=== PATIENT | female | born 1990 | race Caucasian/White ===

== ENCOUNTER 2016-12-25 22:15 | Emergency (ER) | payer OTHER ==
[~2016-12-25] VITALS: Ht 172.7 cm; Wt 86.2 kg
[2016-12-25 22:19] VITALS: BP 134/95
[2016-12-25 22:52] LABS: AMPHETAMINE, URINE NEG. ng/ml (NEG <=1000); BARBITURATE, URINE NEG. ng/ml (NEG <=200); BENZODIAZEPINE, URINE NEG. ng/mL (NEG <=200); CANNABINOID, URINE NEG. ng/mL (NEG <=50); COCAINE, URINE NEG. ng/mL (NEG <=300); OPIATE, URINE NEG. ng/mL (NEG <=2000); PHENCYCLIDINE SCREEN,URINE NEG. ng/mL (NEG <=25)
--- NOTE | 2016-12-26 00:09 | NUR ---
Patient to OF.
--- NOTE | 2016-12-26 00:10 | NUR ---
26Y/F PT. PRESENTS TO ED WITH C/O CHEST PAIN X 1 DAY. PT. STATES PAIN WHEN LYING DOWN, NO N/V/D, NO MEDICAL HX. AAO X4, AMBULATORY WITH STEADY GAIT. RESPIRATIONS ROOM AIR, EVEN AND UNLABORED. SKIN WARM AND DRY. C/O CP 01/21, VSS, ER MADE AWARE OF PT. STATUS.
--- NOTE | 2016-12-26 00:11 | NUR ---
Dr. Posey evaluating patient.
--- NOTE | 2016-12-26 00:18 | NUR ---
Patient discharged with v/s stable. Written and verbal after care instructions given and explained. Patient alert, oriented and verbalized understanding of instructions. Ambulatory with steady gait. All questions addressed prior to discharge. ID band removed. Patient advised to follow up with PMD. Rx of ALBUTEROL 90 MCG/ACTUATION given. Patient educated on indication of medication including possible reaction and side effects. Opportunity to ask questions provided and answered. D/C BY DR. ENNIS.
[2016-12-26 03:07] VITALS: BP 134/95
== END 2016-12-26 00:18 | disposition home or self-care (01) ==
LOC: MED 22:15
DX: J98.01 Acute bronchospasm (principal); R03.0 Elevated blood-pressure reading, without diagnosis of hypertension
CPT/HCPCS: 80305; 93005; 99285

== ENCOUNTER 2017-07-09 05:55 | Day surgery (SDC) | payer OTHER ==
[~2017-07-09] VITALS: Ht 172.7 cm; Wt 83.9 kg
[2017-07-09] MEDS ORDERED: IBUP-2213 PO (07:15)
[2017-07-09] MEDS ORDERED: ACET-2858 PO (07:15)
[2017-07-09] MEDS ORDERED: BUPIVACAINE-MPF 0.5% 30 ML VIAL INJ ONE (07:34)
[2017-07-09] MEDS ORDERED: MORPHINE SULFATE 4 MG/ML SYR IM/IVP PRN (07:50)
[2017-07-09] MEDS ORDERED: ONDANSETRON 4 MG/2 ML VIAL IVP PRN ×2 (07:50→08:35)
[2017-07-09] MEDS ORDERED: IBUPROFEN 800 MG TAB PO PRN (07:50)
[2017-07-09] MEDS ORDERED: ACETAMINOPHEN/CODEINE 300/30MG 1 TAB PO PRN (07:50)
[2017-07-09] MEDS ORDERED: fentaNYL 0.05 MG/ML VIAL ONE (08:02)
[2017-07-09] MEDS ORDERED: ceFAZolin 1,000 MG VIAL ONE (08:10)
[2017-07-09] MEDS ORDERED: METHYLENE BLUE 1% 10 MG/ML AMP ONE (08:20)
[2017-07-09] MEDS ORDERED: HYDROmorphone PFS 2 MG/ML SYR ONE (08:45)
[2017-07-09] MEDS: HYDROmorphone 1 MG/ML AMP IVP PRN ×2 (08:52→09:02)
[2017-07-09] MEDS ORDERED: HYDROmorphone PFS 2 MG/ML SYR IVP PRN (09:32)
== END 2017-07-09 13:01 | disposition home or self-care (01) ==
LOC: MDS 05:55 → MMU 05:57 → MDS 13:01
PROVIDERS: ATTEND Obstetrics & Gynecology
DX: N83.201 Unspecified ovarian cyst, right side (principal); N83.202 Unspecified ovarian cyst, left side; N73.6 Female pelvic peritoneal adhesions (postinfective); N80.9 Endometriosis, unspecified; N97.1 Female infertility of tubal origin
CPT/HCPCS: 58662; 82374; J0690; J1170; J3010; J3490; Q9968

== ENCOUNTER 2018-11-21 16:29 | Emergency (ER) | payer SELFPAY ==
[~2018-11-21] VITALS: Ht 172.7 cm; Wt 83.0 kg
[~2018-11-21 16:29] MED LIST: HYDR-5092 PO; IBUP-2213 PO
[2018-11-21 16:46] VITALS: BP 148/83
--- NOTE | 2018-11-21 16:48 | NUR ---
TO LOBBY A/W BED, AMBULATORY
--- NOTE | 2018-11-21 17:18 | NUR ---
returned from radiology via
--- NOTE | 2018-11-21 17:22 | NUR ---
c/o mechanical fall yesterday--swelling pain tender to apply full weight
[2018-11-21 18:46] VITALS: BP 131/78
--- NOTE | 2018-11-21 18:46 | NUR ---
Patient discharged with v/s stable. Written and verbal after care instructions given and explained. Patient alert, oriented and verbalized understanding of instructions. Ambulatory with steady gait. All questions addressed prior to discharge. ID band removed. Patient advised to follow up with PMD. Rx of NAPROSYN/TRAMADOL given. Patient educated on indication of medication including possible reaction and side effects. Opportunity to ask questions provided and answered.
== END 2018-11-21 18:46 | disposition home or self-care (01) ==
LOC: MED 16:29
DX: S86.911A Strain of unspecified muscle(s) and tendon(s) at lower leg level, right leg, initial encounter (principal); X50.0XXA Overexertion from strenuous movement or load, initial encounter; Y93.01 Activity, walking, marching and hiking; Y92.89 Other specified places as the place of occurrence of the external cause; Y99.8 Other external cause status
CPT/HCPCS: 73562; 99283

== ENCOUNTER 2019-11-23 13:15 | Emergency (ER) | payer SELFPAY ==
[~2019-11-23] VITALS: Ht 172.7 cm; Wt 83.9 kg
[2019-11-23 13:20] VITALS: BP 126/85
--- NOTE | 2019-11-23 13:26 | NUR ---
PT AMB TO BED 6.
--- NOTE | 2019-11-23 13:43 | NUR ---
SALBADOR PEÑALOZA AT BEDSIDE
[2019-11-23] MEDS ORDERED: KETOROLAC 30 MG/ML VIAL IM ONE (13:50)
--- NOTE | 2019-11-23 13:50 | NUR ---
C/O BILATERAL EAR PAIN 01/21 X 2 WEEKS. STATES SHE HAS BEEN TAKING IBUPROFEN AND EAR DROPS WITH NO RELIEF. DENIES DIZZINESS OR LOSS OF HEARING. PT ALERT AND AWAKE, VS STABLE. AMBULATORY WITH STEADY GAIT. MED HX: DENIES
--- NOTE | 2019-11-23 13:55 | NUR ---
TORADOL IM ADMINISTERED
--- NOTE | 2019-11-23 14:32 | NUR ---
NADR, PAIN 08/21
[2019-11-23 14:35] VITALS: BP 134/76
--- NOTE | 2019-11-23 14:35 | NUR ---
Patient discharged with v/s stable. Written and verbal after care instructions given and explained. Patient alert, oriented and verbalized understanding of instructions. Ambulatory with steady gait. All questions addressed prior to discharge. ID band removed. Patient advised to follow up with PMD. Rx of NAPROSYN PRN PAIN AND CORTISPORIN OTIC SOLUTION given. Patient educated on indication of medication including possible reaction and side effects. Opportunity to ask questions provided and answered.
== END 2019-11-23 14:35 | disposition home or self-care (01) ==
LOC: MED 13:15
DX: H60.8X1 Other otitis externa, right ear (principal); Z79.899 Other long term (current) drug therapy
CPT/HCPCS: 96372; 99283; J1885

== ENCOUNTER 2019-12-06 16:39 | Emergency (ER) | payer SELFPAY ==
[~2019-12-06] VITALS: Ht 172.7 cm; Wt 85.7 kg
[2019-12-06 16:54] VITALS: BP 132/96
--- NOTE | 2019-12-06 16:57 | NUR ---
PT AMBULATED TO LOBBY
--- NOTE | 2019-12-06 18:09 | NUR ---
PT C/O NASAL CONGESTION AND SORE THROAT S/P INTRODUCING NEW CAT INTO HOME. PT STATES SHORT HAIR CAT. STATES SHE HAS A BULLDOG AT HOME AND HAS NEVER HAD ANY ALLERGIES. PT DENIES COUGH/SOB. AIRWAY INTACT. AFEBRILE. PT DENIES TAKING ANY MEDICATION FOR S/S, STATES SHE HAS BEEN DRINKING TEAS TO RELIEVE SORE THROAT. PT ALERT AND AWAKE. VS STABLE. PT AMBULATORY WITH STEADY GAIT.
--- NOTE | 2019-12-06 18:13 | NUR ---
SALBADOR PEÑALOZA AT BEDSIDE
[2019-12-06 18:28] VITALS: BP 129/88
--- NOTE | 2019-12-06 18:29 | NUR ---
Patient discharged with v/s stable. Written and verbal after care instructions given and explained. Patient alert, oriented and verbalized understanding of instructions. Ambulatory with steady gait. All questions addressed prior to discharge. ID band removed. Patient advised to follow up with PMD. Rx of zyrtec 5mg, fluticason 50mcg, and ibuprofen 600mg given. Patient educated on indication of medication including possible reaction and side effects. Opportunity to ask questions provided and answered.
== END 2019-12-06 18:29 | disposition home or self-care (01) ==
LOC: MED 16:39
DX: J30.9 Allergic rhinitis, unspecified (principal); Z79.899 Other long term (current) drug therapy
CPT/HCPCS: 99283

== ENCOUNTER 2020-03-19 16:48 | Emergency (ER) | payer MEDICAID ==
[~2020-03-19] VITALS: Ht 172.7 cm; Wt 82.7 kg
[2020-03-19 16:52] VITALS: BP 110/76
--- NOTE | 2020-03-19 17:10 | NUR ---
C/O INTERMITENT GENERALIZED ABDOMINAL PAIN X TODAY. LMP 03/05/20. 6 WEEKS. L1 AND ECTOPIC SURGERY X 2 TIMES. DENIES N/V/D. PT AOX4 , AFIBRILE , AMBULATORY WITH STEADY GAIT , PINK PALPEBRAL CONJUNCTIVA , ANICTERIC SCLERA, SCE , ROUND SOFT ABDOMEN. MED HX: PITUITARY GLAND REMOVAL IN 2006
--- NOTE | 2020-03-19 17:19 | NUR ---
DR PRATT AT BEDSIDE EVALUATING PT.
--- NOTE | 2020-03-19 17:32 | NUR ---
US AND LABS AT BEDSIDE.
[2020-03-19] MEDS: ACETAMINOPHEN 325 MG TAB PO ONE (17:34)
[2020-03-19 17:52] LABS: BASOPHILS % (AUTO) 0.5 % (0.0-2.0); EOSINOPHILS # (AUTO) 0.1 K/uL (0-0.4); EOSINOPHILS % (AUTO) 0.9 % (0.0-4.0); HEMATOCRIT 35.5 % (36-48); HEMOGLOBIN 12.1 g/dL (12.0-16.0); LYMPHOCYTES # (AUTO) 2.2 K/uL (2.5-16.5); LYMPHOCYTES % (AUTO) 23.7 % (20.5-51.1); MEAN CORPUSCULAR HEMOGLOBIN 31 pg (27-31); MEAN CORPUSCULAR HGB CONC 34 g/dL (33-37); MEAN CORPUSCULAR VOLUME 91.5 fL (80-94); MONOCYTES # (AUTO) 0.5 K/uL (0.8-1.0); MONOCYTES % (AUTO) 5.6 % (1.7-9.3); NEUTROPHILS # (AUTO) 6.5 K/uL (1.8-7.7); NEUTROPHILS % (AUTO) 69.3 % (42.2-75.2); PLATELET COUNT (AUTO) 290 K/uL (140-450); RED BLOOD CELL COUNT(AUTO) 3.88 MIL/uL (4.20-5.40); RED CELL DISTRIBUTION WIDTH 12.6 % (11.6-13.7); WHITE BLOOD COUNT (AUTO) 9.4 K/uL (4.8-10.8)
--- NOTE | 2020-03-19 19:10 | NUR ---
dr armijo at bedside reevaluating pt.
[2020-03-19 19:18] VITALS: BP 97/67
--- NOTE | 2020-03-19 19:19 | NUR ---
Patient discharged with v/s stable. Written and verbal after care instructions given and explained regarding threatened miscarriage. Patient alert, oriented and verbalized understanding of instructions. Ambulatory with steady gait. All questions addressed prior to discharge. ID band removed. Patient advised to follow up with PMD. Rx of acetaminophen given. Patient educated on indication of medication including possible reaction and side effects. Opportunity to ask questions provided and answered.Excuse from work give.
== END 2020-03-19 19:18 | disposition home or self-care (01) ==
LOC: MED 16:48
DX: O20.0 Threatened abortion (principal); O00.91 Unspecified ectopic pregnancy with intrauterine pregnancy; Z3A.01 Less than 8 weeks gestation of pregnancy; Z79.899 Other long term (current) drug therapy
CPT/HCPCS: 36415; 76817; 81002; 81025; 84702; 85025; 86900; 86901; 99284; Q0092

== ENCOUNTER 2020-08-21 11:48 | Observation (INO) | payer MEDICAID, SELFPAY ==
[~2020-08-21] VITALS: Ht 172.7 cm; Wt 81.2 kg
[2020-08-21] MEDS ORDERED: PRETAB PO (12:50)
[2020-08-21] MEDS ORDERED: FERR-212 PO (12:51)
[2020-08-21] MEDS ORDERED: CALC500C17 PO (12:53)
[2020-08-21 12:57] VITALS: BP 107/66
[2020-08-21] MEDS ORDERED: MORPHINE SULFATE 4 MG/ML SYR IM PRN (13:55)
== END 2020-08-21 15:25 | disposition home or self-care (01) ==
LOC: MLD 11:48
PROVIDERS: ADMIT Obstetrics & Gynecology; ATTEND Obstetrics & Gynecology
DX: O26.893 Other specified pregnancy related conditions, third trimester (principal); R10.12 Left upper quadrant pain; Z3A.28 28 weeks gestation of pregnancy
CPT/HCPCS: 81000; G0378; J2270; 96372

== ENCOUNTER 2021-09-05 15:20 | Emergency (ER) | payer MEDICAID, SELFPAY ==
[~2021-09-05] VITALS: Ht 172.7 cm; Wt 83.0 kg
[~2021-09-05 15:20] MED LIST changes: +CALC500C17 PO; +FERR-212 PO; -HYDR-5092 PO; -IBUP-2213 PO; +PRETAB PO
[2021-09-05 15:21] VITALS: BP 129/86
--- NOTE | 2021-09-05 15:26 | NUR ---
PT AMBULATED TO ER BED 2 WITH A STEADY GAIT.
--- NOTE | 2021-09-05 15:36 | NUR ---
DR. TORRES AT PT BEDSIDE FOR FURTHER EVALUATION.
[2021-09-05] MEDS ORDERED: IBUP-2213 PO (15:41)
[2021-09-05] MEDS ORDERED: HYDR25CA1 PO (15:41)
[2021-09-05] MEDS ORDERED: hydrOXYzine PAMOATE 25 MG CAP PO STA (15:52)
[2021-09-05] MEDS ORDERED: KETOROLAC 30 MG/ML VIAL IM ONE (15:55)
--- NOTE | 2021-09-05 15:58 | NUR ---
RAD AT PT BEDSIDE
--- NOTE | 2021-09-05 16:18 | NUR ---
lab at pt bedside
[2021-09-05 16:27] LABS: BASOPHILS # (AUTO) 0.1 K/uL (0.00-0.22); BASOPHILS % (AUTO) 0.7 % (0.0-2.0); EOSINOPHILS # (AUTO) 0.2 K/uL (0-0.4); EOSINOPHILS % (AUTO) 3.6 % (0.0-4.0); HEMATOCRIT 38.1 % (36-48); HEMOGLOBIN 13.1 g/dL (12.0-16.0); LYMPHOCYTES # (AUTO) 2.3 K/uL (2.5-16.5); LYMPHOCYTES % (AUTO) 34.9 % (20.5-51.1); MEAN CORPUSCULAR HEMOGLOBIN 32 pg (27-31); MEAN CORPUSCULAR HGB CONC 35 g/dL (33-37); MEAN CORPUSCULAR VOLUME 91.4 fL (80-94); MONOCYTES # (AUTO) 0.4 K/uL (0.8-1.0); MONOCYTES % (AUTO) 5.5 % (1.7-9.3); NEUTROPHILS # (AUTO) 3.7 K/uL (1.8-7.7); NEUTROPHILS % (AUTO) 55.3 % (42.2-75.2); PLATELET COUNT (AUTO) 305 K/uL (140-450); RED BLOOD CELL COUNT(AUTO) 4.16 MIL/uL (4.20-5.40); RED CELL DISTRIBUTION WIDTH 12.5 % (11.6-13.7); WHITE BLOOD COUNT (AUTO) 6.7 K/uL (4.8-10.8)
[2021-09-05 16:46] LABS: ALBUMIN 3.8 g/dL (3.4-5.0); ANION GAP 14.2 (8-16); ASPARTATE AMINOTRANSFERASE 13 U/L (15-37); CARBON DIOXIDE 27.5 mmol/L (21-32); CHLORIDE 102 mmol/L (98-107); CREATININE 0.6 mg/dL (0.6-1.3); GFR ARICAN-AMERICAN 148 mL/min (>90); GLUCOSE 106 mg/dL (74-106); POTASSIUM 3.7 mmol/L (3.5-5.1); SODIUM SERUM 140 mmol/L (136-145); TOTAL BILIRUBIN 0.3 mg/dL (0.0-1.0); UREA NITROGEN, BLOOD 7 mg/dL (7-18)
[2021-09-05] MEDS ORDERED: IBUPROFEN 600 MG TAB PO ONE (16:55)
--- NOTE | 2021-09-05 17:17 | NUR ---
Patient discharged with v/s stable. Written and verbal after care instructions given and explained. Patient alert, oriented and verbalized understanding of instructions. Ambulatory with steady gait. All questions addressed prior to discharge. ID band removed. Patient advised to follow up with PMD. Rx of VISTARIL AND IBUPROFEN given. Patient educated on indication of medication including possible reaction and side effects. Opportunity to ask questions provided and answered.
[2021-09-05 17:18] VITALS: BP 136/79
== END 2021-09-05 17:18 | disposition home or self-care (01) ==
LOC: MED 15:20
DX: R07.9 Chest pain, unspecified (principal); Z63.4 Disappearance and death of family member; Z79.899 Other long term (current) drug therapy
CPT/HCPCS: 36415; 71045; 80053; 81025; 84484; 85025; 93005; 99285; Q0177; J1885

== ENCOUNTER 2022-04-26 14:45 | Emergency (ER) | payer MEDICAID ==
[~2022-04-26] VITALS: Ht 172.7 cm; Wt 81.2 kg
[~2022-04-26 14:45] MED LIST changes: +HYDR25CA1 PO; +IBUP-2213 PO
[2022-04-26 15:06] VITALS: BP 126/88
--- NOTE | 2022-04-26 15:12 | NUR ---
COVID , FLU SWABS DONE.
[2022-04-26] MEDS ORDERED: ALBU0.0912 IH (16:06)
[2022-04-26] MEDS ORDERED: BENZ200C4 PO (16:06)
[2022-04-26] MEDS ORDERED: LID5T TP (16:06)
--- NOTE | 2022-04-26 16:15 | NUR ---
32 y/o female bib, c/o nonproductive cough, body aches, hilliard, rhinorrhea, nasal congestion for 3 days. states her son recently tested positive for COVID-19. She is not vaccinated against COVID. States she feels slightly short of breath when she coughs and has anterior chest wall pain when she coughs. skin is pink/warm/dry. a&o x4 with even and steady gait. ermd made aware of pt. pmh: denies nka
--- NOTE | 2022-04-26 16:26 | NUR ---
Patient discharged with v/s stable. Written and verbal after care instructions given. Patient alert, oriented and verbalized understanding of instructions. Ambulatory with steady gait. All questions addressed prior to discharge. ID band removed. Patient advised to follow up with PMD. Rx of BENZONATATE, LIDODERM AND PROVENTIL given. Opportunity to ask questions provided and answered. WORK NOTE HANDED TO PATIENT.
--- NOTE | 2022-04-26 16:27 | NUR ---
The patient's care was reviewed and supervised by Diane Brown, RN, RN.
== END 2022-04-26 16:26 | disposition home or self-care (01) ==
LOC: MED 14:45
DX: U07.1 COVID-19 (principal); J06.9 Acute upper respiratory infection, unspecified; Z79.899 Other long term (current) drug therapy
CPT/HCPCS: 99283

== ENCOUNTER 2022-05-24 12:56 | Emergency (ER) | payer MEDICAID ==
[~2022-05-24] VITALS: Ht 172.7 cm; Wt 81.7 kg
[~2022-05-24 12:56] MED LIST changes: +ALBU0.0912 IH; +BENZ200C4 PO; +LID5T TP
[2022-05-24 13:03] VITALS: BP 136/99
[2022-05-24 13:22] LABS: APPEARANCE,URINE SL CLOUDY (CLEAR); BILIRUBIN,URINE NEGATIVE (NEGATIVE); BLOOD, URINE 3+ (NEGATIVE); COLOR,URINE AMBER (YELLOW); LEUKOCYTE ESTERASE ,URINE NEGATIVE (NEGATIVE); NITRITE, URINE NEGATIVE (NEGATIVE); UGLUCOSE NEGATIVE (NEGATIVE)
[2022-05-24 13:36] LABS: OTHER CASTS, URINE None Seen /LPF (None Seen); RBC,URINE 11-20 (MOD) /HPF (0-5); WBC,URINE 0-5 /HPF (0-5)
[2022-05-24] MEDS ORDERED: NACL 0.9% 1,000 ML IV ONE (15:05)
[2022-05-24 15:08] LABS: BASOPHILS # (AUTO) 0.1 K/uL (0.00-0.22); BASOPHILS % (AUTO) 0.6 % (0.0-2.0); EOSINOPHILS # (AUTO) 0.2 K/uL (0-0.4); EOSINOPHILS % (AUTO) 1.9 % (0.0-4.0); HEMATOCRIT 42.3 % (36-48); HEMOGLOBIN 14.4 g/dL (12.0-16.0); LYMPHOCYTES # (AUTO) 2.6 K/uL (2.5-16.5); LYMPHOCYTES % (AUTO) 29.9 % (20.5-51.1); MEAN CORPUSCULAR HEMOGLOBIN 32 pg (27-31); MEAN CORPUSCULAR HGB CONC 34 g/dL (33-37); MEAN CORPUSCULAR VOLUME 92.1 fL (80-94); MONOCYTES # (AUTO) 0.6 K/uL (0.8-1.0); MONOCYTES % (AUTO) 6.9 % (1.7-9.3); NEUTROPHILS # (AUTO) 5.2 K/uL (1.8-7.7); NEUTROPHILS % (AUTO) 60.7 % (42.2-75.2); PLATELET COUNT (AUTO) 344 K/uL (140-450); RED BLOOD CELL COUNT(AUTO) 4.59 MIL/uL (4.20-5.40); RED CELL DISTRIBUTION WIDTH 13.1 % (11.6-13.7); WHITE BLOOD COUNT (AUTO) 8.6 K/uL (4.8-10.8)
[2022-05-24 15:43] LABS: ALBUMIN 4.1 g/dL (3.4-5.0); ANION GAP 13.9 (8-16); CARBON DIOXIDE 29.2 mmol/L (21-32); CREATININE 0.6 mg/dL (0.6-1.3); POTASSIUM 4.1 mmol/L (3.5-5.1); TOTAL BILIRUBIN 0.6 mg/dL (0.0-1.0)
[2022-05-24] MEDS ORDERED: KETOROLAC 30 MG/ML VIAL IVP ONE (15:50)
--- NOTE | 2022-05-24 15:57 | NUR ---
pt in room 11, a/o times 4, medicated for left flank pain, no n/v, o2 sat 98% ra, sr up times 2
[2022-05-24] MEDS ORDERED: ONDANSETRON 4 MG/2 ML VIAL IVP ONE (17:05)
[2022-05-24] MEDS ORDERED: MORPHINE SULFATE 4 MG/ML SYR IVP ONE (17:05)
[2022-05-24] MEDS ORDERED: cephALEXin 500 MG CAP PO ONE (17:05)
[2022-05-24] MEDS ORDERED: TAMSULOSIN 0.4 MG CAP PO SCH (17:05)
[2022-05-24] MEDS ORDERED: IBUP-2213 PO (17:07)
[2022-05-24] MEDS ORDERED: CEPH-588 PO (17:07)
[2022-05-24] MEDS ORDERED: ACET-6951 PO (17:07)
[2022-05-24] MEDS ORDERED: ONDA-188 SL (17:07)
[2022-05-24] MEDS ORDERED: TAMS0.4C96 PO (17:07)
--- NOTE | 2022-05-24 17:23 | NUR ---
medicated per dr order, o2 sat 99% ra, sr up times 2
[2022-05-24 17:45] VITALS: BP 135/72
--- NOTE | 2022-05-24 18:34 | NUR ---
Patient discharged with v/s stable. Written and verbal after care instructions given and explained. Patient alert, oriented and verbalized understanding of instructions. Ambulatory with steady gait. All questions addressed prior to discharge. ID band removed. Patient advised to follow up with PMD. Rx of KEFLEX, TYLENOL, IBUPROFEN, ZOFRAN, FLOMAX (SENT) given. Patient educated on indication of medication including possible reaction and side effects. Opportunity to ask questions provided and answered.
== END 2022-05-24 17:45 | disposition home or self-care (01) ==
LOC: MED 12:56
DX: N20.0 Calculus of kidney (principal); N13.30 Unspecified hydronephrosis; I10 Essential (primary) hypertension; Z79.899 Other long term (current) drug therapy
CPT/HCPCS: 36415; 74176; 80053; 81001; 81025; 83690; 85025; 87086; 96361; 96374; 96375; 99284; J1885; J2270; J2405; J7030

== ENCOUNTER 2022-06-18 11:48 | Emergency (ER) | payer MEDICAID ==
[~2022-06-18] VITALS: Ht 172.7 cm; Wt 80.7 kg
[~2022-06-18 11:48] MED LIST changes: +ACET-6951 PO; +CEPH-588 PO; +ONDA-188 SL; +TAMS0.4C96 PO
[2022-06-18 11:59] VITALS: BP 132/83
[2022-06-18] MEDS ORDERED: ONDANSETRON 4 MG/2 ML VIAL IVP ONE (12:30)
[2022-06-18] MEDS ORDERED: MORPHINE SULFATE 4 MG/ML SYR IVP ONE (12:30)
[2022-06-18] MEDS ORDERED: KETOROLAC 30 MG/ML VIAL IVP ONE (12:45)
[2022-06-18 12:57] LABS: APPEARANCE,URINE SL CLOUDY (CLEAR); BILIRUBIN,URINE NEGATIVE (NEGATIVE); BLOOD, URINE 3+ (NEGATIVE); COLOR,URINE RED (YELLOW); LEUKOCYTE ESTERASE ,URINE TRACE (NEGATIVE); NITRITE, URINE NEGATIVE (NEGATIVE); UGLUCOSE NEGATIVE (NEGATIVE)
[2022-06-18 13:02] LABS: BASOPHILS % (AUTO) 0.4 % (0.0-2.0); EOSINOPHILS # (AUTO) 0.1 K/uL (0-0.4); HEMATOCRIT 39.8 % (36-48); HEMOGLOBIN 13.6 g/dL (12.0-16.0); LYMPHOCYTES # (AUTO) 1.6 K/uL (2.5-16.5); LYMPHOCYTES % (AUTO) 14.8 % (20.5-51.1); MEAN CORPUSCULAR HEMOGLOBIN 31 pg (27-31); MEAN CORPUSCULAR HGB CONC 34 g/dL (33-37); MEAN CORPUSCULAR VOLUME 91.7 fL (80-94); MONOCYTES # (AUTO) 0.5 K/uL (0.8-1.0); NEUTROPHILS # (AUTO) 8.4 K/uL (1.8-7.7); NEUTROPHILS % (AUTO) 78.8 % (42.2-75.2); PLATELET COUNT (AUTO) 299 K/uL (140-450); RED BLOOD CELL COUNT(AUTO) 4.34 MIL/uL (4.20-5.40); RED CELL DISTRIBUTION WIDTH 13.1 % (11.6-13.7); WHITE BLOOD COUNT (AUTO) 10.7 K/uL (4.8-10.8)
--- NOTE | 2022-06-18 13:11 | NUR ---
PT WENT TO CT
[2022-06-18 13:13] LABS: RBC,URINE 20-50 /HPF (0-5)
[2022-06-18 13:14] LABS: OTHER CASTS, URINE None Seen /LPF (None Seen)
[2022-06-18 13:16] LABS: ALBUMIN 4.4 g/dL (3.4-5.0); ANION GAP 12.7 (8-16); CREATININE 0.6 mg/dL (0.6-1.3); POTASSIUM 3.7 mmol/L (3.5-5.1); TOTAL BILIRUBIN 0.8 mg/dL (0.0-1.0)
[2022-06-18] MEDS ORDERED: TAMS0.4C96 PO (14:52)
[2022-06-18] MEDS ORDERED: IBUP-2218 PO (14:52)
[2022-06-18] MEDS ORDERED: CEPH-588 PO (14:52)
--- NOTE | 2022-06-18 15:27 | NUR ---
IV removed, catheter intact and site benign. Applied folded 4x4 gauze and tape to stop bleeding.
[2022-06-18 15:31] VITALS: BP 128/88
--- NOTE | 2022-06-18 15:31 | NUR ---
Patient discharged with v/s stable. Written and verbal after care instructions ABOUT KIDNEY STONES AND OVARIAN CYSTS given and explained. Patient alert, oriented and verbalized understanding of instructions. Ambulatory with steady gait. All questions addressed prior to discharge. ID band removed. Patient advised to follow up with PMD. Rx of KEFLEX, MOTRIN AND FLOMAX given. Patient educated on indication of medication including possible reaction and side effects. Opportunity to ask questions provided and answered.
== END 2022-06-18 15:31 | disposition home or self-care (01) ==
LOC: MED 11:48
DX: N13.4 Hydroureter (principal); N83.201 Unspecified ovarian cyst, right side; N39.0 Urinary tract infection, site not specified
CPT/HCPCS: 36415; 74176; 76856; 80053; 81001; 81025; 83690; 84702; 85025; 87086; 93976; 96374; 96375; 99284; J1885; J2405; Q0092

== ENCOUNTER 2022-10-16 11:16 | Emergency (ER) | payer MEDICAID ==
[~2022-10-16] VITALS: Ht 170.2 cm; Wt 72.6 kg
[~2022-10-16 11:16] MED LIST changes: +IBUP-2218 PO
[2022-10-16 11:27] VITALS: BP 129/80
--- NOTE | 2022-10-16 11:29 | NUR ---
AMB. TO BED 7 W NO DIFFICULTIES
[2022-10-16] MEDS ORDERED: HYDROcodone/APAP 5/325 MG 1 TAB TAB PO ONE (11:40)
--- NOTE | 2022-10-16 11:42 | NUR ---
patient comes in c/o hilliard since wednesday and chest pain that started yesterday 01/21. pt has o past medical hx and takes no medications. symtoms can on unexpected denies dizziness, vision changes, ear pain. she endorses nausea and has taken tylenol for the h/a with no relief.
[2022-10-16 11:52] LABS: BASOPHILS % (AUTO) 0.5 % (0.0-2.0); EOSINOPHILS # (AUTO) 0.2 K/uL (0-0.4); HEMATOCRIT 38.3 % (36-48); HEMOGLOBIN 13.1 g/dL (12.0-16.0); LYMPHOCYTES # (AUTO) 1.8 K/uL (2.5-16.5); LYMPHOCYTES % (AUTO) 27.5 % (20.5-51.1); MEAN CORPUSCULAR HEMOGLOBIN 32 pg (27-31); MEAN CORPUSCULAR HGB CONC 34 g/dL (33-37); MONOCYTES # (AUTO) 0.3 K/uL (0.8-1.0); MONOCYTES % (AUTO) 4.4 % (1.7-9.3); NEUTROPHILS # (AUTO) 4.3 K/uL (1.8-7.7); NEUTROPHILS % (AUTO) 64.6 % (42.2-75.2); PLATELET COUNT (AUTO) 309 K/uL (140-450); RED BLOOD CELL COUNT(AUTO) 4.11 MIL/uL (4.20-5.40); RED CELL DISTRIBUTION WIDTH 12.3 % (11.6-13.7); WHITE BLOOD COUNT (AUTO) 6.7 K/uL (4.8-10.8)
[2022-10-16 12:08] LABS: ANION GAP 9.2 (8-16); CARBON DIOXIDE 29.4 mmol/L (21-32); CREATININE 0.7 mg/dL (0.6-1.3); POTASSIUM 3.6 mmol/L (3.5-5.1)
--- NOTE | 2022-10-16 12:56 | NUR ---
Patient discharged with v/s stable. Written and verbal after care instructions given and explained. Patient verbalized understanding. Ambulatory with steady gait. All questions addressed prior to discharge. Advised to follow up with PMD.
== END 2022-10-16 12:56 | disposition home or self-care (01) ==
LOC: MED 11:16
DX: R07.9 Chest pain, unspecified (principal); R51.9 Headache, unspecified; Z79.899 Other long term (current) drug therapy; Z79.1 Long term (current) use of non-steroidal anti-inflammatories (NSAID); Z79.2 Long term (current) use of antibiotics
CPT/HCPCS: 36415; 71045; 80048; 84484; 84703; 85025; 93005; 99285; Q0092

== ENCOUNTER 2023-05-17 08:17 | Emergency (ER) | payer MEDICAID ==
[~2023-05-17] VITALS: Ht 167.6 cm; Wt 72.6 kg
[2023-05-17 08:52] VITALS: BP 115/76; PULSE 83; RESP 18; TEMP 98; O2SAT 98
[2023-05-17 09:00] VITALS: O2SAT 98
[2023-05-17 10:15] LABS: ANION GAP 11.3 (8-16); CALCIUM 8.4 mg/dL (8.5-10.1); CARBON DIOXIDE 27.5 mmol/L (21-32); CREATININE 0.7 mg/dL (0.6-1.3); POTASSIUM 3.8 mmol/L (3.5-5.1)
[2023-05-17 10:16] LABS: BASOPHILS % (AUTO) 0.6 % (0.0-2.0); EOSINOPHILS # (AUTO) 0.2 K/uL (0-0.4); EOSINOPHILS % (AUTO) 3.6 % (0.0-4.0); HEMATOCRIT 39.1 % (36-48); HEMOGLOBIN 13.5 g/dL (12.0-16.0); LYMPHOCYTES % (AUTO) 30.5 % (20.5-51.1); MEAN CORPUSCULAR HEMOGLOBIN 32 pg (27-31); MEAN CORPUSCULAR HGB CONC 34 g/dL (33-37); MONOCYTES # (AUTO) 0.3 K/uL (0.8-1.0); MONOCYTES % (AUTO) 4.9 % (1.7-9.3); NEUTROPHILS % (AUTO) 60.4 % (42.2-75.2); PLATELET COUNT (AUTO) 322 K/uL (140-450); RED BLOOD CELL COUNT(AUTO) 4.25 MIL/uL (4.20-5.40); RED CELL DISTRIBUTION WIDTH 12.7 % (11.6-13.7); WHITE BLOOD COUNT (AUTO) 6.6 K/uL (4.8-10.8)
[2023-05-17 10:20] LABS: BILIRUBIN,URINE NEGATIVE (NEGATIVE); BLOOD, URINE TRACE-I (NEGATIVE); COLOR,URINE YELLOW (YELLOW); LEUKOCYTE ESTERASE ,URINE NEGATIVE (NEGATIVE); NITRITE, URINE NEGATIVE (NEGATIVE); PH,URINE 6.5 (5.0-9.0); PROTEIN,URINE NEGATIVE (NEGATIVE); UGLUCOSE NEGATIVE (NEGATIVE); UROBILINOGEN,URINE 0.2 EU/dL (0.2 - 1)
[2023-05-17 10:44] LABS: APPEARANCE,URINE SLIGHTLY HAZY (CLEAR); BACTERIA,URINE FEW /HPF (None Seen); RBC,URINE 0-5 /HPF (0-5); SQUAMOUS EPITHELIAL CELL,UR 4-10 (MOD) /LPF (0-3 (FEW)); WBC,URINE 0-5 /HPF (0-5)
[2023-05-17] MEDS ORDERED: KETOROLAC 30 MG/ML VIAL IM ONE (10:45)
[2023-05-17 10:56] LABS: FLU A ANTIGEN negative (NEGATIVE); FLU B ANTIGEN negative (NEGATIVE)
[2023-05-17 11:24] LABS: LIPASE 33 U/L (16-77)
[2023-05-17] MEDS ORDERED: IBUP-2213 PO (11:47)
[2023-05-17 12:26] VITALS: BP 115/76; PULSE 83; RESP 18; TEMP 98; O2SAT 98
== END 2023-05-17 12:23 | disposition home or self-care (01) ==
LOC: MED 08:17
DX: R05.9 Cough, unspecified (principal); Z20.822 Contact with and (suspected) exposure to COVID-19; R10.9 Unspecified abdominal pain; R07.9 Chest pain, unspecified; N20.0 Calculus of kidney; Z79.899 Other long term (current) drug therapy
CPT/HCPCS: 36415; 71045; 80048; 81001; 81025; 83690; 84484; 85025; 87426; 87804; 93005; 96372; 99285; J1885